=== PATIENT | female | born 1980 | race Caucasian/White ===

== ENCOUNTER → 2017-04-12 | Outpatient (CLI) | payer OTHER ==
[2017-04-12 08:41] LABS: CH 32.4; CHCM 35.2; HDW 2.58; HGB 13.1 gm/dL (11.4-16.0); MCH 31.8 pg (25.0-35.0); MCHC 34.3 g/dL (31.0-37.0); MCV 92.6 fL (80.0-100.0); Mean Platelet Volume 7.2; RDW 13.5 % (11.5-15.5); WBC 6.7 k/uL (3.8-10.6)
[2017-04-12 08:56] LABS: Non-African American GFR(MDRD) >60 (>60 ml/min/1.73 sqM)
[2017-04-12 09:23] LABS: Hepatitis B Surface Ag Index 0.06
[2017-04-12 15:38] LABS: Treponemal Ab Non-Reactive (Non-Reactive)
== END | disposition home or self-care (01) ==
LOC: LABWHC1 07:17
PROVIDERS: ATTEND Obstetrics & Gynecology
DX: Z34.82 Encounter for supervision of other normal pregnancy, second trimester (principal)
CPT/HCPCS: 36415; 82565; 82950; 85027; 86762; 86780; 86850; 86900; 86901; 87340

== ENCOUNTER → 2017-04-19 | Outpatient (CLI) | payer OTHER ==
[2017-04-19 12:14] LABS: Glucose 3 Hour, Gest 52 mg/dL
== END | disposition home or self-care (01) ==
LOC: LABWHC1 07:23
PROVIDERS: ATTEND Obstetrics & Gynecology
DX: O99.810 Abnormal glucose complicating pregnancy (principal); Z3A.00 Weeks of gestation of pregnancy not specified
CPT/HCPCS: 36415; 82951; 82952

== ENCOUNTER → 2017-06-17 | Outpatient (CLI) | payer OTHER ==
[2017-06-17 09:30] LABS: CH 30.8; HCT 37.2 % (34.0-46.0); HGB 12.3 gm/dL (11.4-16.0); MCH 31.1 pg (25.0-35.0); MCHC 33.2 g/dL (31.0-37.0); MCV 93.9 fL (80.0-100.0); Mean Platelet Volume 7.1; RBC 3.96 m/uL (3.80-5.40); RDW 13.6 % (11.5-15.5); WBC 9.5 k/uL (3.8-10.6)
== END | disposition home or self-care (01) ==
LOC: LABWHC1 07:59
PROVIDERS: ATTEND Obstetrics & Gynecology
DX: Z34.82 Encounter for supervision of other normal pregnancy, second trimester (principal)
CPT/HCPCS: 36415; 82950; 85027

== ENCOUNTER → 2017-06-24 | Outpatient (CLI) | payer OTHER ==
[2017-06-24 12:53] LABS: Glucose 3 Hour, Gest 50 mg/dL
== END | disposition home or self-care (01) ==
LOC: LABWHC1 07:57
PROVIDERS: ATTEND Obstetrics & Gynecology
DX: O99.810 Abnormal glucose complicating pregnancy (principal)
CPT/HCPCS: 36415; 82951; 82952

== ENCOUNTER 2017-08-20 11:51 | Emergency (ER) | payer OTHER ==
--- NOTE | 2017-08-20 14:30 | ED ---
URI HPI - General Chief Complaint: Upper Respiratory Infection Stated Complaint: Flu/34 wks Time Seen by Provider: 08/20/17 13:25 Source: patient Mode of arrival: ambulatory Limitations: no limitations - History of Present Illness Initial Comments: This 37-year-old white female presents with a complaint of a cough. She states that this is been present for approximately 3 days. She also had a fever of 101.2 two days ago. She denies any shortness breath or chest pain. She denies any previous known pulmonary complaints. She has been exposed to upper respiratory infections and/or influenza by multiple family members and workplace employees. She is currently 34 weeks' and states that she was nervous that this could be potentially affecting her . She was sent here via urgent care. She denies any abdominal pain. She has had some minimal nausea and occasional loose stools. She denies any vaginal bleeding or fluid leakage. She has been getting normal care through her [facility] physician. She denies any complications with thus far. No other complaints or modifying factors. - Related Data Home Medications Medication Instructions Recorded Confirmed Ascorbic Acid [Vitamin C] 500 mg PO DAILY 08/20/17 08/20/17 Cephalexin [Keflex] 500 mg PO BID 08/20/17 08/20/17 Magnesium 200 mg PO DAILY 08/20/17 08/20/17 Yox-Gwcx-Ynnww Acid 1 cap PO DAILY 08/20/17 08/20/17 [-U Capsule (formulary)] Allergies Allergy/AdvReac Type Severity Reaction Status Date / Time No Known Allergies Allergy Verified 08/20/17 14:14 Review of Systems ROS Statement: Those systems with pertinent positive or pertinent negative responses have been documented in the HPI. ROS Other: All systems not noted in ROS Statement are negative. Past Medical History Past Medical History: No Reported History History of Any Multi-Drug Resistant Organisms: None Reported Additional Past Surgical History / Comment(s): laparoscopy Past Anesthesia/Blood Transfusion Reactions: No Reported Reaction Past Psychological History: No Psychological Hx Reported Smoking Status: Former smoker Past Alcohol Use History: None Reported Past Drug Use History: None Reported - Past Family History Mother Family Medical History: No Reported History General Exam - General Exam Comments Initial Comments: GENERAL: The patient is well nourished and well hydrated. VITAL SIGNS: Heart rate, blood pressure, respiratory rate reviewed as recorded in nurse's notes. EYES: Pupils are round and reactive. Extraocular movements are intact. No conjunctival / lid redness or swelling. ENT: No external evidence of injury, swelling, or ecchymosis. Airway is patent. Throat is clear. NECK: Nontender. No swelling or evidence of injury. No subcutaneous emphysema. Trachea is midline. No thyroid mass. HEART: Regular rate and rhythm. Good peripheral pulses. LUNGS/CHEST: Breath sounds clear and equal bilaterally. No rales, rhonchi, or wheezes. No ecchymosis, subcutaneous emphysema, or tenderness. Occasional cough noted. ABDOMEN: Abdomen soft without tenderness. No palpable masses or organomegaly. No peritoneal signs. The patient has a gravid uterus. EXTREMITIES: No extremity tenderness. Normal muscle tone and function. No thoracolumbar tenderness. NEUROLOGIC: Sensation is grossly intact. Cranial nerve exam reveals face is symmetrical, tongue is midline, speech is clear. SKIN: No abrasions or ecchymosis is noted. No induration or masses noted. PSYCHIATRIC: Alert and oriented. Appropriate behavior and judgment. Limitations: no limitations Course Vital Signs 08/20/17 12:08 Temperature 98.5 F Pulse Rate 104 H Respiratory 22 Rate Blood Pressure 108/71 O2 Sat by Pulse 97 Oximetry Medical Decision Making - Medical Decision Making The patient was seen and examined. The influenza test is negative. heart tones were completed by [facility] and are essentially within normal limits. It is felt as though she likely does have an upper respiratory infection. It is also felt as though she is stable for discharge and leaves in no identifiable distress. - Lab Data Lab Results 08/20/17 Range/Units 13:34 Influenza Type A RNA Not Detected (Not Detectd) Influenza Type B (PCR) Not Detected (Not Detectd) Disposition Clinical Impression: Upper respiratory infection, Disposition: HOME SELF-CARE Condition: Good Instructions: Upper Respiratory Infection (ED) Additional Instructions: You may use Mucinex DM for cough and congestion. He also may utilize, if needed for additional fevers or pain. Please follow-up with your [facility] doctor very closely. Referrals: None,Stated [Primary Care Provider] - 1-2 days Time of Disposition: 14:29
[2017-08-20 14:47] VITALS: BP 120/70; PULSE 80; RESP 18; TEMP 98.4
== END 2017-08-20 14:47 | disposition home or self-care (01) ==
LOC: EC 11:51
DX: O99.513 Diseases of the respiratory system complicating pregnancy, third trimester (principal); J06.9 Acute upper respiratory infection, unspecified; O99.89 Other specified diseases and conditions complicating pregnancy, childbirth and the puerperium; R11.0 Nausea; R19.5 Other fecal abnormalities; Z3A.34 34 weeks gestation of pregnancy; Z87.891 Personal history of nicotine dependence; Z79.899 Other long term (current) drug therapy
CPT/HCPCS: 87502; 99284

== ENCOUNTER 2017-09-26 06:06 | Inpatient (IN) | payer OTHER ==
[2017-09-26] MEDS ORDERED: CITRIC ACID-SODIUM CITRATE 15 ML CUP PO ONE (06:18)
[2017-09-26] MEDS ORDERED: ceFAZolin IN SWFI 2 GM/20 ML SYRINGE IVP ONE (06:18)
[2017-09-26] MEDS: LACTATED RINGERS 1,000 ML IV SCH ×2 (06:20→11:16)
[2017-09-26 06:31] LABS: Basophils % (A) 0 %; Eosinophils # (A) 0.1 k/uL (0-0.7); Eosinophils % (A) 2 %; HCT 37.3 % (34.0-46.0); HGB 12.3 gm/dL (11.4-16.0); Lymphocytes # (A) 2.4 k/uL (1.0-4.8); Lymphocytes % (A) 31 %; MCH 29.8 pg (25.0-35.0); MCV 90.3 fL (80.0-100.0); Mean Platelet Volume 7.2; Monocytes # (A) 0.5 k/uL (0-1.0); Monocytes % (A) 6 %; Neutrophils # (A) 4.7 k/uL (1.3-7.7); Neutrophils % (A) 60 %; Platelet Count 294 k/uL (150-450); RBC 4.13 m/uL (3.80-5.40); RDW 13.7 % (11.5-15.5); WBC 7.8 k/uL (3.8-10.6)
[2017-09-26 06:37] VITALS: BMI 28.1
[2017-09-26] MEDS ORDERED: OXYTOCIN 10 UNIT/ML 1 ML VIAL ONE (07:51)
[2017-09-26] MEDS ORDERED: KETOROLAC 30 MG/ML 1 ML VIAL ONE (07:51)
[2017-09-26] MEDS ORDERED: MORPHINE SULFATE (PF) 0.3 MG/0.3 ML SYR ONE (07:51)
[2017-09-26] MEDS ORDERED: NALBUPHINE 10 MG/ML AMPUL ONE (07:51)
[2017-09-26] MEDS ORDERED: ONDANSETRON 4 MG/2 ML VIAL ONE (07:51)
[2017-09-26] MEDS ORDERED: ACETAMINOPHEN TAB 325 MG TAB PO PRN (08:29)
[2017-09-26] MEDS ORDERED: diphenhydrAMINE 50 MG CAP PO PRN (08:29)
[2017-09-26] MEDS ORDERED: METOCLOPRAMIDE 5 MG/ML 2 ML VIAL IVP PRN (08:29)
[2017-09-26] MEDS ORDERED: ZOLPIDEM 5 MG TAB PO PRN (08:29)
[2017-09-26] MEDS ORDERED: diphenhydrAMINE 50 MG/ML 1 ML VIAL IVP PRN ×2 (08:29)
[2017-09-26] MEDS ORDERED: diphenhydrAMINE 25 MG CAP PO PRN (08:29)
[2017-09-26] MEDS ORDERED: KETOROLAC 30 MG/ML 1 ML VIAL IVP PRN (08:29)
[2017-09-26] MEDS ORDERED: ONDANSETRON 4 MG/2 ML VIAL IVP PRN (08:29)
[2017-09-26] MEDS ORDERED: Acetaminophen-Codeine 300-30mg TAB PO PRN ×2 (08:29)
[2017-09-26] MEDS ORDERED: NALOXONE 0.4 MG/ML 1 ML VIAL IV PRN (08:29)
--- NOTE | 2017-09-26 08:31 | P.HPOB ---
History of Present Illness H&P Date: 09/26/17 Chief Complaint: Intrauterine at term: Previous section Ibeth is a 37-year-old at 39 weeks gestation who arrives for repeat low transverse section. Her course has been unremarkable other than advanced maternal age for which she didn't call [facility] with maternal- medicine and received nonstress tests twice weekly. Otherwise she was feeling well and voices no complaints or questions this morning. Pertinent labs do include A+ blood type Rh antibody negative, rubella immune, hepatitis B surface antigen and RPR were both negative. GBS was also negative. On physical exam vital signs are stable and afebrile. Heart regular, lungs clear, extremities are without pain. Osteopathic exams unremarkable. Abdomen soft nontender. Positive positive bowel sounds are noted. Assessment intrauterine at term. Plan repeat low transverse section. Past Medical History Past Medical History: No Reported History History of Any Multi-Drug Resistant Organisms: None Reported Past Surgical History: Section Additional Past Surgical History / Comment(s): laparoscopy Past Anesthesia/Blood Transfusion Reactions: No Reported Reaction Past Psychological History: No Psychological Hx Reported Smoking Status: Former smoker Past Alcohol Use History: None Reported Additional Past Alcohol Use History / Comment(s): QUIT SMOKING 2014 Past Drug Use History: None Reported - Past Family History Mother Family Medical History: No Reported History Medications and Allergies Home Medications Medication Instructions Recorded Confirmed Type Kqo-Wyav-Eowwd Acid 1 cap PO DAILY 08/20/17 09/24/17 History [-U Capsule (formulary)] Allergies Allergy/AdvReac Type Severity Reaction Status Date / Time No Known Allergies Allergy Verified 08/20/17 14:14 Exam Osteopathic Statement: *. No significant issues noted on an osteopathic structural exam other than those noted in the History and Physical/Consult. - Vital Signs Vital signs: Vital Signs Temp Pulse Resp BP Pulse Ox 09/26/17 06:18 98.1 F 79 16 116/55 99 Intake and Output 09/25/17 09/26/17 09/26/17 22:59 06:59 14:59 Other: Weight 81.647 kg Results Result Diagrams: 09/26/17 06:25
--- NOTE | 2017-09-26 08:35 | P.OP ---
Date of Procedure: 09/26/17 Preoperative Diagnosis: Intrauterine at term: Previous section Postoperative Diagnosis: Same Procedure(s) Performed: Repeat low transverse section Anesthesia: spinal Surgeon: Temo Mckeon Monorail Helper #1: Yordy Kerr Estimated Blood Loss (ml): 300 IV fluids (ml): 900 Urine output (ml): 100 Pathology: other (Placenta) Condition: stable Disposition: floor Operative Findings: Female scores of 9 and 9 at one and 5 minutes Evan and weight of 8 lbs. 13 oz. Amniotic fluid consistent with polyhydramnios although for ultrasounds previously had not shown's polyhydramnios Description of Procedure: Patient was taken to the operating suite where a spinal anesthetic was found be adequate. She was prepped and draped in the normal sterile fashion and placed in the dorsal supine position with leftward tilt. Initially a Pfannenstiel skin incision was made and this incision was then carried through to underlying layer of the fascia with the second knife. Fascia was then nicked in the midline and this opening was extended laterally with Paez scissors. Superior and inferior aspect of this incision were then grasped tented up and bluntly and sharply dissected off the rectus muscles. Rectus muscles were then divided in the midline and blunt dissection the peritoneum was made. This opening was then extended superiorly and inferiorly with good visualization of both bowel bladder. Bladder blade was then placed and the vesicouterine peritoneum was identified grasped with pickups and entered sharply with Metzenbaum scissors. This opening was then extended across face uterus with Metzenbaum scissors and her bladder flap was digitally created. Knife was then used to incise uterus and it was fully entered with hemostat. This opening was then extended bluntly and head was atraumatically delivered. Significant quantity of amniotic fluid fluid was noted at this point. Mouth and nares were bulb suctioned and then anterior posterior shoulders were delivered with gentle downward and upward traction. Umbilical cord was then clamped cut usual fashion an nursery personnel was present to assume care. Ascent was then delivered intact and Pitocin was added to the IV. Uterus was then exteriorized cleared of clots and debris and closed in 1 layer with 0 Vicryl suture once excellent hemostasis was obtained 3-0 Vicryl was used to reapproximate the bladder flap. Blood and debris was then suctioned from the posterior cul-de-sac and the uterus was reinserted into the abdomen. Peritoneal layer was then closed with 0 Vicryl suture fascial layer was closed with 0 Vicryl suture one layer of 3-0 Vicryl was placed in deep subcuticular tissues to reapproximate skin and close the space skin was then closed with 3-0 Vicryl on a Todd needle. Patient was then taken to the recovery room in stable and satisfactory condition.
[2017-09-27 08:04] LABS: Basophils % (A) 0 %; Eosinophils # (A) 0.1 k/uL (0-0.7); Eosinophils % (A) 2 %; HCT 33.7 % (34.0-46.0); HGB 11.2 gm/dL (11.4-16.0); Lymphocytes # (A) 1.5 k/uL (1.0-4.8); Lymphocytes % (A) 19 %; MCH 30.5 pg (25.0-35.0); MCHC 33.2 g/dL (31.0-37.0); MCV 91.8 fL (80.0-100.0); Mean Platelet Volume 7.1; Monocytes # (A) 0.5 k/uL (0-1.0); Monocytes % (A) 6 %; Neutrophils # (A) 5.8 k/uL (1.3-7.7); Neutrophils % (A) 73 %; Platelet Count 221 k/uL (150-450); RBC 3.67 m/uL (3.80-5.40); RDW 13.8 % (11.5-15.5)
--- NOTE | 2017-09-27 09:14 | P.PNOBGPC ---
Subjective - Subjective Principal diagnosis: Postop day 1 Interval history: Patient is doing very well postop day 1. She is involuting, voiding and she is tolerating her diet. She voices no complaints. Vital signs are stable and afebrile. Heart regular, lungs clear, extremities without pain. Abdomen soft incisions intact. Assessment postop day 1. Plan continue current care. Patient reports: Reports appetite normal, Reports voiding normally, Reports pain well controlled, Reports ambulating normally [place]: doing well Objective - Vital Signs Latest vital signs: Vital Signs Temp Pulse Resp BP Pulse Ox 09/27/17 04:00 98.1 F 66 16 88/55 09/27/17 00:00 97.8 F 70 18 87/52 97 09/26/17 20:00 98.2 F 67 16 96/63 09/26/17 16:00 97.6 F 73 18 84/48 97 09/26/17 13:00 98.7 F 72 16 89/54 09/26/17 11:00 63 16 97/64 09/26/17 10:21 96.9 F L 84 16 105/62 100 09/26/17 09:35 84 16 97/63 09/26/17 09:20 72 16 103/62 98 Intake and Output 09/26/17 09/27/17 09/27/17 22:59 06:59 14:59 Intake Total 800 Output Total 2800 Balance -2000 Intake: IV 800 Invasive Line 1 800 Output: Urine 2800 Uretheral (Tyson) 1800 Other: # Voids 0 0 - Labs Labs: Abnormal Lab Results - Last 24 Hours (Table) 09/27/17 Range/Units 07:41 RBC 3.67 L (3.80-5.40) m/uL Hgb 11.2 L (11.4-16.0) gm/dL Hct 33.7 L (34.0-46.0) %
--- NOTE | 2017-09-27 09:19 | P.PN ---
Progress Note - Text Progress Note Date: 09/27/17 Postoperative day 1 status post section under spinal anesthesia, and intrathecal morphine given for postoperative analgesia, patient doing well, there is no anesthesia related complications, Patient had no headache, vital signs stable , Assessment and plan= postop day 1 status post , doing well there is no anesthesia related complication.
[2017-09-27] MEDS: IBUPROFEN 600 MG TAB PO PRN ×2 (14:15→20:52)
[2017-09-27] MEDS: LACTATED RINGERS 1,000 ML IV SCH ×9 (22:23→22:33)
[2017-09-27] MEDS: SENNOSIDES-DOCUSATE SODIUM 1 EACH TAB PO SCH (22:31)
[2017-09-28] MEDS: LACTATED RINGERS 1,000 ML IV SCH ×24 (00:55→01:17)
[2017-09-28] MEDS: SENNOSIDES-DOCUSATE SODIUM 1 EACH TAB PO SCH ×2 (09:34→21:01)
--- NOTE | 2017-09-28 11:27 | P.PNOBGPC ---
Subjective - Subjective Principal diagnosis: Status post section postoperative day #2 Interval history: Patient is doing well. She is breast-feeding. Lochia is decreasing. Pain is fairly well controlled. She is passing flatus but no bowel movement yet. Her baby does need to stay 1 more day per pediatrics. Patient reports: Reports appetite normal, Reports voiding normally, Reports pain well controlled, Reports ambulating normally [place]: doing well, nursing well Objective - Vital Signs Latest vital signs: Vital Signs Temp Pulse Resp BP Pulse Ox 09/28/17 09:28 97.7 F 90 16 104/60 97 09/28/17 00:00 98.4 F 63 14 106/56 97 09/27/17 16:00 98.0 F 69 18 102/60 Intake and Output 09/27/17 09/28/17 09/28/17 22:59 06:59 14:59 Other: # Voids 1 1 - Exam Extremities: Present: normal. Absent: tenderness, edema Abdomen: Present: normal appearance, soft (Positive bowel sounds 4). Absent: distention, tenderness Incision: Present: normal, dry, intact. Absent: erythematous Uterus: Present: normal, firm. Absent: tenderness Assessment and Plan Assessment: Impression is status post section postoperative day #2 Plan: Plan is to continue with and postoperative care. Anticipate discharge home tomorrow.
[2017-09-28] MEDS: IBUPROFEN 600 MG TAB PO PRN ×2 (17:01→23:43)
[2017-09-29] MEDS: IBUPROFEN 600 MG TAB PO PRN ×2 (09:19→20:19)
[2017-09-29] MEDS: SENNOSIDES-DOCUSATE SODIUM 1 EACH TAB PO SCH ×2 (09:19→20:18)
--- NOTE | 2017-09-29 11:19 | P.PNOBGPC ---
Subjective - Subjective Principal diagnosis: Status post section postoperative day #3 Interval history: Patient is doing well. She is passing flatus but no bowel movement yet. Lochia is decreasing. Pain is fairly well controlled. She is breast-feeding. Her baby does have jaundice and will need to stay 1 more day. Patient reports: Reports appetite normal, Reports voiding normally, Reports pain well controlled, Reports ambulating normally : doing well, nursing well Objective - Vital Signs Latest vital signs: Vital Signs Temp Pulse Resp BP Pulse Ox 09/29/17 09:24 98.0 F 79 16 117/64 98 09/28/17 23:42 98.5 F 80 18 102/61 98 09/28/17 15:56 98.6 F 82 16 107/63 97 Intake and Output 09/28/17 09/29/17 09/29/17 22:59 06:59 14:59 Other: # Voids 1 - Exam Extremities: Present: normal. Absent: tenderness, edema Abdomen: Present: normal appearance, soft (Positive bowel sounds 4). Absent: distention, tenderness Incision: Present: normal, dry, intact Uterus: Present: normal, firm. Absent: tenderness Assessment and Plan Assessment: Impression is status post section postoperative day #3 Plan: Will continue with postoperative and care today. Anticipate discharge home tomorrow.
--- NOTE | 2017-09-30 08:05 | P.DS ---
Providers Date of admission: 09/26/17 06:06 Expected date of discharge: 09/30/17 Attending physician: Temo Mckeon Primary care physician: Stated None Hospital Course: This is a 37-year-old female 3 para 1 at 39-2/7 weeks who presented for scheduled repeat section. She underwent repeat low transverse section on 09/26/2017 and delivered a viable female with scores of 9 at 1 minute and 9 at 5 minutes and weight of 8 lbs. 13 oz. Her postoperative course has been uncomplicated. She is passing flatus and bowel movement. She is breast-feeding. Vital signs are stable. Abdomen is soft with positive bowel sounds 4. Incision is clean dry and intact with Steri -Strips in place. Extremities show negative Homans. Impression is status post repeat section postoperative day #4. Plan is to discharge home today. Routine postoperative and instructions are given. She is instructed to follow-up with Dr. Mckeon in 1 week for a postoperative check and in 6 weeks for a post check. She is advised to call the office if she has any further questions or concerns prior to her appointment times. She will be given a prescription for ibuprofen. Procedures: Repeat low transverse section on 09/26/2017 Patient Condition at Discharge: Stable Plan - Discharge Summary Discharge Rx Participant: Yes New Discharge Prescriptions: New Ibuprofen [Motrin] 600 mg PO Q6HR PRN #60 tab PRN Reason: Mild Pain Or Fever >= 100.5 Continue Mpu-Pjue-Zjshk Acid [-U Capsule (formulary)] 1 cap PO DAILY Discharge Medication List Gbp-Urpw-Jlqyn Acid [-U Capsule (formulary)] 1 cap PO DAILY [History] Ibuprofen [Motrin] 600 mg PO Q6HR PRN #60 tab 09/30/17 [Rx] Follow up Appointment(s)/Referral(s): Temo Mckeon DO [Doctor of Osteopathic Medicine] - 1 Week Activity/Diet/Wound Care/Special Instructions: Instructions 1. Do not begin any exercise program for 3 weeks. 2. Do not resume sexual relations for 3 weeks or longer if uncomfortable. 3. You may take tub baths or showers at any time. 4. You may use tampons if desired after 3 weeks. 5. Keep the area of episiotomy (stitches) clean and dry. 6. If you are not nursing, wear a good fitting, supportive bra during the day and limit fluid intake for at least 1 week to prevent breast engorgement. 7. Call the office, [phone], within the next week to make appointment for your 6 week checkup if it has not already been made. 8. Report any of the following occurrences to the doctor promptly: a. Heavy, excessive bleeding b. Chills, fever c. Burning or frequency of urination d. Pain or redness and breasts if nursing e. Increasing pain or swelling in episiotomy (stitches). In addition to the above instructions, the following additional should be followed: 1. No heavy lifting or straining (exercising) until after 6 week checkup. 2. Keep abdominal incision clean and dry: You may wear a dressing if more comfortable. 3. Make office appointment for 10 days after going home or as instructed by her doctor. Discharge Disposition: HOME SELF-CARE
[2017-09-30] MEDS: IBUPROFEN 600 MG TAB PO PRN (08:08)
[2017-09-30] MEDS: SENNOSIDES-DOCUSATE SODIUM 1 EACH TAB PO SCH (08:08)
[2017-09-30 08:15] VITALS: BP 109/69; PULSE 74; RESP 16; TEMP 98.4
== END 2017-09-30 09:50 | disposition home or self-care (01) | DRG 765 ==
LOC: 4FBP 06:06
PROVIDERS: ADMIT Obstetrics & Gynecology; ATTEND Obstetrics & Gynecology
PROC: 00HU33Z Insertion of Infusion Device into Spinal Canal, Percutaneous Approach (ICD-10-PCS; 2017-09-26)
PROC: 3E0R3NZ Introduction of Analgesics, Hypnotics, Sedatives into Spinal Canal, Percutaneous Approach (ICD-10-PCS; 2017-09-26)
PROC: 10D00Z1 Extraction of Products of Conception, Low, Open Approach (ICD-10-PCS; principal; 2017-09-26 08:00)
DX: O34.211 Maternal care for low transverse scar from previous cesarean delivery (principal); O40.3XX0 Polyhydramnios, third trimester, not applicable or unspecified; Z37.0 Single live birth; Z3A.39 39 weeks gestation of pregnancy; Z87.891 Personal history of nicotine dependence
CPT/HCPCS: 85025; 86850; 86900; 86901; 88307

== ENCOUNTER → 2020-01-22 | Outpatient (CLI) | payer OTHER ==
--- NOTE | 2020-01-22 15:12 | US ---
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 Neck swelling GLAND SIZE: Right Lobe: 5.9 x 1.6 x 1.9 cm Overall Parenchyma: heterogenous Left Lobe: 5.0 x 1.2 x 1.4 cm Overall Parenchyma: heterogeneous Isthmus Thickness: 0.2 cm NODULES RIGHT: # of nodules measured on right: 1 1. 1.8 X 1.0 x 1.3 cm heterogeneous mixed nodule at the mid pole with irregular, poorly defined mar gins. This nodule is wider than tall and shows intranodular vascularity. Prior size: no previous LEFT: # of nodules measured on left: 0 ISTHMUS: # of nodules measured in the isthmus: 0 Bilateral neck scanned, no evidence of lymphadenopathy. IMPRESSION: Right thyroid lobe nodule, consider correlation with nuclear medicine scan
== END | disposition home or self-care (01) ==
LOC: RADUSWWP 14:11
PROVIDERS: ATTEND Family Medicine
DX: E04.1 Nontoxic single thyroid nodule (principal)
CPT/HCPCS: 76536

== ENCOUNTER → 2020-01-29 | Outpatient (CLI) | payer OTHER ==
[2020-01-29 09:44] LABS: Basophils % (A) 1 %; Eosinophils # (A) 0.1 k/uL (0-0.7); Eosinophils % (A) 3 %; HCT 34.3 % (34.0-46.0); HGB 10.4 gm/dL (11.4-16.0); Hypochromasia Moderate; Lymphocytes # (A) 1.4 k/uL (1.0-4.8); Lymphocytes % (A) 34 %; MCH 26.2 pg (25.0-35.0); MCHC 30.5 g/dL (31.0-37.0); MCV 86.1 fL (80.0-100.0); Monocytes # (A) 0.4 k/uL (0-1.0); Monocytes % (A) 8 %; Neutrophils # (A) 2.2 k/uL (1.3-7.7); Neutrophils % (A) 51 %; Platelet Count 286 k/uL (150-450); RBC 3.98 m/uL (3.80-5.40); RDW 14.1 % (11.5-15.5); WBC 4.2 k/uL (3.8-10.6)
[2020-01-29 15:36] LABS: Chol/HDL Ratio 2.79; Cholesterol 145 mg/dL (0-200); Triglycerides <50.0 mg/dL (0.0-149.0)
[2020-01-29 15:37] LABS: ALT 22 U/L (8-44); AST 37 U/L (13-35); African American GFR (CKD) 106.1 (60.0-200.0); Albumin/Globulin Ratio 1.88 (1.60-3.17); Alkaline Phosphatase 48 U/L (41-126); Calcium 9.1 mg/dL (8.7-10.3); Carbon Dioxide 23.9 mmol/L (21.6-31.8); Chloride 108 mmol/L (96-109); Globulin 2.4 g/dL (1.6-3.3); Glucose 91 mg/dL (70-110); Non-African American GFR(CKD) 91.6 (60.0-200.0); Potassium 4.3 mmol/L (3.5-5.5); Sodium 138 mmol/L (135-145); Total Bilirubin 0.6 mg/dL (0.3-1.2); Total Protein 6.9 g/dL (6.2-8.2)
== END | disposition home or self-care (01) ==
LOC: LABWHC1 08:10
PROVIDERS: ATTEND Family Medicine
DX: Z00.00 Encounter for general adult medical examination without abnormal findings (principal); Z13.220 Encounter for screening for lipoid disorders; Z13.228 Encounter for screening for other metabolic disorders; E04.0 Nontoxic diffuse goiter
CPT/HCPCS: 36415; 80053; 80061; 82306; 82607; 84439; 84443; 85025; 86376

== ENCOUNTER → 2020-08-25 | Outpatient (CLI) | payer OTHER ==
--- NOTE | 2020-08-26 11:21 | MM ---
Reason for exam: screening (asymptomatic). Baseline mammogram. History: Patient had first child at age 36. Took hormonal contraceptives for 5 years. Physical Findings: Nurse did not find any significant physical abnormalities on exam. MG Screening Mammo w CAD Bilateral CC and MLO view(s) were taken. The breast tissue is heterogeneously dense. This may lower the sensitivity of mammography. Three asymmetric densities left breast and one on the right. These results were verbally communicated with the patient and result sheet given to the patient on 08/25/20. ASSESSMENT: Incomplete: need additional imaging evaluation, BI-RAD 0 RECOMMENDATION: Special view mammogram of both breasts.
--- NOTE | 2020-08-26 11:23 | MM ---
Reason for exam: additional evaluation requested from abnormal screening. History: Patient had first child at age 36. Took hormonal contraceptives for 5 years. Physical Findings: Breast exam preformed at baseline screening. MG Work Up Mamm w CAD BILAT Bilateral spot compression CC view(s) were taken. Spot compression MLO view(s) were taken of the right breast. The breast tissue is heterogeneously dense. This may lower the sensitivity of mammography. Asymmetric densities on the left disperse on additional views. Redidual superior density right MLO view, ultrasound recommended. These results were verbally communicated with the patient and result sheet given to the patient on 08/25/20. ASSESSMENT: Incomplete: need additional imaging evaluation, BI-RAD 0 RECOMMENDATION: Ultrasound of the right breast. (9-3 o'clock)
--- NOTE | 2020-08-26 11:35 | USB ---
Reason for exam: additional evaluation requested from abnormal screening. History: Patient had first child at age 36. Took hormonal contraceptives for 5 years. US Breast Workup Limited RT Right limited breast ultrasound including focal area of concern, retroareolar and axilla demonstrates no cystic or solid lesion seen. Scanned 9-3 o'clock. 6 month follow up mammogram recommended. These results were verbally communicated with the patient and result sheet given to the patient on 08/25/20. ASSESSMENT: Probably benign, BI-RAD 3 RECOMMENDATION: Follow-up diagnostic mammogram of the right breast in 6 months.
== END | disposition home or self-care (01) ==
LOC: RADMAMWWP 12:47
PROVIDERS: ATTEND Obstetrics & Gynecology
DX: Z12.31 Encounter for screening mammogram for malignant neoplasm of breast (principal); R92.8 Other abnormal and inconclusive findings on diagnostic imaging of breast
CPT/HCPCS: 77066; 77067

== ENCOUNTER → 2021-01-12 | Outpatient (CLI) | payer BC ==
--- NOTE | 2021-01-13 07:19 | US ---
EXAMINATION TYPE: US thyroid st tissue head/neck DATE OF EXAM: 01/12/2021 COMPARISON: US 01/22/2020 CLINICAL HISTORY: E04.1 Thyroid Nodule. GLAND SIZE: Right Lobe: 5.1 x 1.2 x 1.7 cm Overall Parenchyma: heterogenous Left Lobe: 5.0 x 1.4 x 1.3 cm Overall Parenchyma: heterogeneous Isthmus Thickness: 0.3 cm NODULES RIGHT: # of nodules measured on right: 0 LEFT: # of nodules measured on left: 0 ISTHMUS: # of nodules measured in the isthmus: 0 Bilateral neck scanned, no evidence of lymphadenopathy. Bilateral diffusely heterogeneous, hypervascular thyroid glands. IMPRESSION: Heterogeneous thyroid without focal nodule seen. 2017 ACR TI-RADS LEVEL: TR-RADS 1 - BENIGN: No FNA *Highest TI-RADS level nodule reported
== END | disposition home or self-care (01) ==
LOC: RADUSWWP 16:01
PROVIDERS: ATTEND Family Medicine
DX: E04.1 Nontoxic single thyroid nodule (principal)
CPT/HCPCS: 76536